=== PATIENT | male | born 2000 | race Caucasian/White ===

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

== ENCOUNTER 2018-04-12 00:01 | Emergency (ER) | payer MEDICAID, OTHER ==
[2018-04-12] MEDS: HYDROCODONE/APAP (5/325) TAB PO (00:44)
[2018-04-12 00:49] LABS: URINE PH (Dip) POC 6.5 (5.0-8.5)
[2018-04-12 00:49] LABS: URINE BLOOD (Dip) POC Negative (NEGATIVE); URINE GLUCOSE (Dip) POC Negative (NEGATIVE); URINE KETONES (Dip) POC Trace (NEGATIVE); URINE LEUKOCYTE EST (Dip) POC Negative (NEGATIVE); URINE NITRITE (Dip) POC Negative (NEGATIVE); URINE TOTAL PROTEIN POC 1+ (NEGATIVE)
[2018-04-12 01:10] LABS: URINE PH (Dip) POC 6.5 (5.0-8.5)
[2018-04-12 01:10] LABS: URINE BLOOD (Dip) POC Negative (NEGATIVE); URINE GLUCOSE (Dip) POC Negative (NEGATIVE); URINE KETONES (Dip) POC Trace (NEGATIVE); URINE LEUKOCYTE EST (Dip) POC Negative (NEGATIVE); URINE NITRITE (Dip) POC Negative (NEGATIVE); URINE TOTAL PROTEIN POC 1+ (NEGATIVE)
[2018-04-12] MEDS: LIDOCAINE 1% (MPF) 5 ML VIAL INJ (02:35)
[2018-04-12] MEDS: CEFTRIAXONE 250 MG INJ IM (02:35)
[2018-04-12] MEDS: AZITHROMYCIN 250 MG TAB PO (02:35)
== END 2018-04-12 03:01 | disposition home or self-care (01) ==
LOC: FTE 00:01
DX: N50.812 Left testicular pain (principal)
CPT/HCPCS: 76870; 81003; 96372; 99285-25

== ENCOUNTER 2018-09-09 09:26 | Emergency (ER) | payer MEDICAID ==
[2018-09-09 10:11] LABS: URINE BLOOD (Dip) POC 1+ (NEGATIVE); URINE GLUCOSE (Dip) POC Negative (NEGATIVE); URINE KETONES (Dip) POC Negative (NEGATIVE); URINE LEUKOCYTE EST (Dip) POC Trace (NEGATIVE); URINE NITRITE (Dip) POC Negative (NEGATIVE); URINE TOTAL PROTEIN POC 1+ (NEGATIVE)
[2018-09-09 10:11] LABS: URINE PH (Dip) POC 5.5 (5.0-8.5)
[2018-09-09] MEDS: LIDOCAINE 1% (MPF) 5 ML VIAL INJ (10:12)
[2018-09-09] MEDS: CEFTRIAXONE 250 MG INJ IM (10:12)
[2018-09-09] MEDS: AZITHROMYCIN 500 MG TAB PO (10:12)
== END 2018-09-09 10:26 | disposition home or self-care (01) ==
LOC: FTE 10:26
DX: R30.0 Dysuria (principal)
CPT/HCPCS: 81003; 87591; 96372; 99284-25